=== PATIENT | male | born 1980 | race African-American/Black ===

== ENCOUNTER 2017-03-13 22:06 | Emergency (ER) | payer MEDICAID ==
[~2017-03-13] VITALS: Ht 185.4 cm; Wt 84.0 kg
[2017-03-14 00:15] LABS: BASOPHILS % 0.6 % (0.0-2.0); EOSINOPHILS % 0.5 % (0.0-5.0); HEMATOCRIT. 37.9 % (42.0-52.0); HEMOGLOBIN. 12.5 g/dL (14.0-18.0); LYMPHOCYTES % 15.4 % (20.0-50.0); MEAN CORPUSCULAR HEMOGLOBIN 23.8 pg (28.0-32.0); MEAN CORPUSCULAR VOLUME 71.9 fL (80.0-94.0); MEAN PLATELET VOLUME 7.5 fl (7.4-10.4); NEUTROPHILS % 79.5 % (40.0-76.0); PLATELET 187 x1000/uL (130-400); RED BLOOD CELL COUNT 5.27 mill/uL (4.7-6.1); RED CELL DISTRIBUTION WIDTH 15.1 % (11.6-14.6)
[2017-03-14 00:22] LABS: CHLORIDE 105 mEq/L (98-107)
[2017-03-14 00:26] LABS: CARBON DIOXIDE 29 mEq/L (21-32)
[2017-03-14] MEDS ORDERED: POTASSIUM CHLORIDE 20MEQ TABLET SR PO ONE (01:45)
[2017-03-14 01:56] VITALS: BP 128/68
== END 2017-03-14 01:59 | disposition home or self-care (01) ==
LOC: ER 22:08
DX: R42 Dizziness and giddiness (principal); E87.6 Hypokalemia; R06.02 Shortness of breath; R20.2 Paresthesia of skin; F12.10 Cannabis abuse, uncomplicated; Z88.6 Allergy status to analgesic agent; Z98.890 Other specified postprocedural states
CPT/HCPCS: 36415; 80048; 85025; 93005; 99285; Z7610

== ENCOUNTER 2018-11-16 21:47 | Emergency (ER) | payer MEDICAID ==
[~2018-11-16] VITALS: Ht 185.4 cm; Wt 85.0 kg
[2018-11-17 05:48] VITALS: BP 117/74
== END 2018-11-17 05:51 | disposition home or self-care (01) ==
LOC: ER 21:47
DX: I86.1 Scrotal varices (principal); N43.40 Spermatocele of epididymis, unspecified; N43.3 Hydrocele, unspecified; F12.10 Cannabis abuse, uncomplicated; Z88.5 Allergy status to narcotic agent
CPT/HCPCS: 76857; 76870; 93976; 99284

== ENCOUNTER 2019-06-28 22:34 | Emergency (ER) | payer MEDICAID ==
[~2019-06-28] VITALS: Ht 177.8 cm; Wt 79.0 kg
[2019-06-29 02:23] VITALS: BP 115/70
== END 2019-06-29 02:24 | disposition home or self-care (01) ==
LOC: ER 22:34
DX: H00.14 Chalazion left upper eyelid (principal); H00.12 Chalazion right lower eyelid; Z88.5 Allergy status to narcotic agent; Z98.890 Other specified postprocedural states
CPT/HCPCS: 82962; 99282

== ENCOUNTER 2020-02-13 00:58 | Emergency (ER) | payer MEDICAID ==
[~2020-02-13] VITALS: Ht 185.4 cm; Wt 82.0 kg
[2020-02-13] MEDS ORDERED: SODIUM CHLORIDE 0.9% 1,000 ML IV ONE (02:17)
[2020-02-13] MEDS ORDERED: KETOROLAC 30MG/ML VIAL IV STA (02:17)
[2020-02-13 02:38] LABS: CHLORIDE 107 mEq/L (98-107)
[2020-02-13 02:53] LABS: BASOPHILS % 0.4 % (0.0-2.0); EOSINOPHILS % 2.5 % (0.0-5.0); HEMATOCRIT. 41.2 % (42.0-52.0); HEMOGLOBIN. 13.3 g/dL (14.0-18.0); LYMPHOCYTES % 43.7 % (20.0-50.0); MEAN CORPUSCULAR HEMOGLOBIN 23.7 pg (28.0-32.0); MEAN CORPUSCULAR VOLUME 73.3 fL (80.0-94.0); MEAN PLATELET VOLUME 7.9 fl (7.4-10.4); NEUTROPHILS % 44.4 % (40.0-76.0); PLATELET 193 x1000/uL (130-400); RED BLOOD CELL COUNT 5.63 mill/uL (4.7-6.1); RED CELL DISTRIBUTION WIDTH 15.3 % (11.6-14.6)
[2020-02-13] MEDS ORDERED: IOHEXOL-300 100 ML BOTTLE ONE (03:55)
[2020-02-13 04:30] LABS: CLARITY URINE CLEAR (CLEAR); COLOR URINE YELLOW (YELLOW); KETONES URINE TRACE (NEGATIVE); LEUKOCYTE ESTERASE URINE NEGATIVE (NEGATIVE); NITRITE URINE NEGATIVE (NEGATIVE); OCCULT BLOOD URINE NEGATIVE (NEGATIVE); PH URINE 5.5 (4.5-8.0); PROTEIN URINE NEGATIVE (NEGATIVE)
[2020-02-13 05:41] VITALS: BP 128/78
== END 2020-02-13 05:46 | disposition home or self-care (01) ==
LOC: ER 00:58
DX: R10.12 Left upper quadrant pain (principal); K59.00 Constipation, unspecified; Z88.5 Allergy status to narcotic agent; Z98.890 Other specified postprocedural states
CPT/HCPCS: 36415; 74177; 80053; 81003; 83690; 85025; 93005; 99285; J1885; J7030; Q9967